=== PATIENT | female | born 1945 | race Caucasian/White ===

== ENCOUNTER 2023-06-27 08:25 | Day surgery (SDC) | payer MEDICARE ==
[2023-06-26 16:14] VITALS: BP 160/78; PULSE 84; RESP 16
[~2023-06-27] VITALS: Ht 162.6 cm; Wt 63.5 kg
[2023-06-27] VITALS (17 sets, daily range): BP systolic 136–159; BP diastolic 68–90; PULSE 71–111; RESP 12–22
[~2023-06-27 08:25] MED LIST: CALC-1125 PO; CHOL100046 PO; MV-M1TAB57 PO; OMEP40CA21 PO
[2023-06-27] MEDS ORDERED: MELA10TA2 PO (09:38)
[2023-06-27] MEDS ORDERED: CALC-1125 PO (09:38)
[2023-06-27] MEDS ORDERED: ESCI20TA PO (09:38)
[2023-06-27] MEDS ORDERED: PROPOFOL 10 MG/ML 20ML VIAL IV ONE ×3 (10:40→11:12)
[2023-06-27] MEDS ORDERED: LIDOCAINE HCL 1% 20 ML VIAL ONE (11:13)
[2023-06-27] MEDS ORDERED: EPINEPHRINE PF 1MG (1:1,000) 1 MG/ML AMP ONE (11:29)
[2023-06-27] MEDS ORDERED: EPINEPHRINE PF 1MG (1:1,000) 1 MG/ML AMP IH STA (11:42)
== END 2023-06-27 13:25 | disposition home or self-care (01) ==
LOC: DAH 08:25 → ENDO 08:25
PROVIDERS: ATTEND Internal Medicine Gastroenterology
DX: R93.5 Abnormal findings on diagnostic imaging of other abdominal regions, including retroperitoneum (principal); K86.89 Other specified diseases of pancreas; R13.10 Dysphagia, unspecified; R14.2 Eructation; R19.7 Diarrhea, unspecified; K57.30 Diverticulosis of large intestine without perforation or abscess without bleeding; K21.9 Gastro-esophageal reflux disease without esophagitis; M19.90 Unspecified osteoarthritis, unspecified site; Z79.01 Long term (current) use of anticoagulants; Z79.899 Other long term (current) drug therapy; Z90.710 Acquired absence of both cervix and uterus; Z98.41 Cataract extraction status, right eye; Z98.42 Cataract extraction status, left eye; Z90.13 Acquired absence of bilateral breasts and nipples; Z86.010 Personal history of colon polyps; Z80.0 Family history of malignant neoplasm of digestive organs
CPT/HCPCS: 43237; 43248; 94640; J0171; J2704 ×2; A4620; A4215 ×2; A4223; A7002; A4222; A4221; A4663; J7030; A4606; J3490